=== PATIENT | female | born 1965 | race Two or more races ===

== ENCOUNTER 2024-05-30 17:21 | Emergency (ER) | payer MEDICAID ==
[~2024-05-30] VITALS: Ht 162.6 cm; Wt 70.0 kg
[2024-05-30 17:32] VITALS: O2SAT 99
[2024-05-30] MEDS: MORPHINE SULFATE 4 MG/ML INJ (FOR IV/IM USE) IV ONE (22:22)
[2024-05-30] MEDS: ACETAMINOPHEN 325MG TABLET PO ONE (23:41)
[2024-05-30 23:45] LABS: HEMATOCRIT. 36.7 % (36.0-48.0); HEMOGLOBIN. 12.1 g/dL (12.0-16.0); MEAN CORPUSCULAR HEMOGLOBIN 31.3 pg (28.0-32.0); MEAN CORPUSCULAR HGB CONC 32.9 g/dL (31.0-37.0); MEAN CORPUSCULAR VOLUME 95.4 fL (81.0-99.0); MEAN PLATELET VOLUME 9.1 fl (7.4-10.4); PLATELET 230 x1000/uL (130-400); RED BLOOD CELL COUNT 3.85 mill/uL (4.2-5.4); RED CELL DISTRIBUTION WIDTH 13.4 % (11.6-14.6); WHITE BLOOD COUNT 12.8 x1000/uL (4.5-11.0)
[2024-05-30 23:50] LABS: PROTHROMBIN TIME 10.5 sec (9.6-11.0)
[2024-05-30 23:56] LABS: DIFFERENTIAL COMMENT 1
[2024-05-31 00:01] LABS: CHLORIDE 100 mEq/L (98-107); POTASSIUM 3.4 mEq/L (3.5-5.1); SODIUM 136 mEq/L (136-145)
[2024-05-31 00:02] LABS: CARBON DIOXIDE 25 mEq/L (21-32)
[2024-05-31 00:03] LABS: CALCIUM 8.9 mg/dL (8.7-10.4)
[2024-05-31 00:07] LABS: CREATININE 0.6 mg/dL (0.6-1.0); GLUCOSE 119 mg/dL (70-105)
[2024-05-31 00:08] LABS: UREA NITROGEN BLOOD 19 mg/dL (9-23)
[2024-05-31] MEDS: CYCLOBENZAPRINE 10MG TABLET PO ONE (01:25)
[2024-05-31 06:38] VITALS: TEMP 36.7; O2SAT 99
[2024-05-31 06:40] VITALS: BP 119/78; PULSE 72; RESP 19; TEMP 98
[2024-05-31 11:02] LABS: PLATELET ESTIMATE NORMAL
== END 2024-05-31 07:11 | disposition short-term general hospital (02) ==
LOC: ER 17:52
DX: S43.004A Unspecified dislocation of right shoulder joint, initial encounter (principal); S09.90XA Unspecified injury of head, initial encounter; I10 Essential (primary) hypertension; J44.89 Other specified chronic obstructive pulmonary disease; W01.0XXA Fall on same level from slipping, tripping and stumbling without subsequent striking against object, initial encounter; Y93.89 Activity, other specified; Y92.89 Other specified places as the place of occurrence of the external cause; Y99.8 Other external cause status
CPT/HCPCS: 99285; 96374; 70450; 80048; 85025; 85610; 86850; 86900; 86901; 36415; 73030; 73560; J2270